=== PATIENT | female | born 1990 | race Caucasian/White ===

== ENCOUNTER 2019-07-03 10:42 | Emergency (ER) | payer OTHER ==
[2019-07-03 11:17] VITALS: BP 116/90
[2019-07-03] MEDS ORDERED: Tetan/Diph/Pertus SYR(Tdap)* 0.5 ML SYR(BOOSTRIX) use SYR IM ONE (11:28)
--- NOTE | 2019-07-03 11:34 | UC ---
Epistaxis Nasal HPI - HPI Summary HPI Summary: 28-year-old female who was putting branches into a mill when these tick she was using bounced back and hit her in the nose. Diameter of the stick is approximately 4-5 inches. No loss of consciousness however she did have an immediate nosebleed. - History of Current Complaint Chief Complaint: UCGeneralIllness Stated Complaint: NOSE INJ Time Seen by Provider: 07/03/19 11:21 Hx Obtained From: Patient Hx Last Menstrual Period: IUD ?: No Onset/Duration: Sudden Onset Severity Initially: Moderate Severity Currently: Mild Pain Intensity: 4 Aggravating Factor(s): Nasal Trauma Alleviating Factor(s): Pressure Associated Signs And Symptoms: Positive: Bruising - Swelling over the bridge of the nose. - Allergies/Home Medications Allergies/Adverse Reactions: Allergies Allergy/AdvReac Type Severity Reaction Status Date / Time No Known Allergies Allergy Verified 07/03/19 11:13 Home Medications: Home Medications Levonorgestrel (Iud) [Mirena IUD] 1 implant ONCE 07/03/19 [History Confirmed ] Levothyroxine TAB* [Synthroid 25 MCG TAB*] 1 tab QAM 07/03/19 [History Confirmed 07/03/19] Sertraline* [Zoloft*] 50 mg PO QAM 07/03/19 [History Confirmed 07/03/19] PMH/Surg Hx/FS Hx/Imm Hx Previously Healthy: Yes - Surgical History Surgical History: None - Family History Known Family History: Positive: Non-Contributory - Social History Occupation: Employed Full-time Lives: With Family Alcohol Use: Occasionally Substance Use Type: None Smoking Status (MU): Never Smoked Tobacco Review of Systems All Other Systems Reviewed And Are Negative: Yes Skin: Positive: Bruising - Bruising and swelling over bridge of nose. ENT: Positive: Epistaxis - Patient had immediate nosebleed however that has resolved. Is Patient Immunocompromised?: No Physical Exam Triage Information Reviewed: Yes Appearance: Well-Appearing, No Pain Distress, Well-Nourished Vital Signs: Initial Vital Signs Temp 98.4 F 07/03/19 11:14 Pulse 95 07/03/19 11:14 Resp 18 07/03/19 11:14 BP 116/90 07/03/19 11:14 Pulse Ox 100 09/24/19 11:14 Vital Signs Reviewed: Yes Eyes: Positive: Conjunctiva Clear - PERRLA, EOMI ENT: Positive: Hearing grossly normal, Pharynx normal, TMs normal, Uvula midline , Other - No septal hematoma. No current epistaxis. Dental: Positive: Other: - Teeth are not involved. Neck: Positive: Supple, Nontender - C-spine nontender, No Lymphadenopathy Respiratory: Positive: Chest non-tender, Lungs clear, Normal breath sounds, No respiratory distress, No accessory muscle use Cardiovascular: Positive: RRR, No Murmur, Pulses Normal, Brisk Capillary Refill Musculoskeletal: Positive: Strength Intact, ROM Intact, No Edema - Mild bruising and swelling over the bridge of the nose. Tender on palpation. Orbits are nontender. No orbital step-off. Neurological: Positive: Alert, Muscle Tone Normal - Cranial nerves II through XII are intact. Good arm and leg strength against resistance. Psychological Exam: Normal Skin: Positive: Other - See above notes. Epistaxis Nasal Course/Dx - Course Course Of Treatment: Nasal bones x-ray:FINDINGS: BONE DENSITY: Normal. BONES: There is a minimally displaced transverse fracture through the distal nasal bones bilaterally. The orbital rims are intact. JOINTS: There is no arthropathy. ALIGNMENT: There is no dislocation. SOFT TISSUES: Unremarkable. OTHER FINDINGS: There is mucosal thickening of the maxillary sinuses bilaterally. IMPRESSION: MINIMALLY DISPLACED FRACTURE OF THE DISTAL NASAL BONES BILATERALLY. Patient was given a referral to an ear nose and throat physician to call today and make an appointment for evaluation. Patient stated she does have a primary care provider, Dr. Stallworth. Head injury precautions were also given to the patient and with friend who is with her. - Differential Dx/Diagnosis Provider Diagnosis: Nasal fracture Discharge ED - Sign-Out/Discharge Documenting (check all that apply): Patient Departure All imaging exams completed and their final reports reviewed: Yes - Discharge Plan Condition: Fair Disposition: HOME Patient Education Materials: Nasal Fracture (ED), Head Injury (ED) Referrals: [facility] [Outside] No Primary Care Phys,NOPCP [Primary Care Provider] - Josiah Joyce MD [Medical Doctor] - Additional Instructions: Intermittent ice to her nose throughout the next day or 2. Tylenol every 4 hours as needed for pain. Follow-up with an ear nose and throat physician. Go to the emergency room if you have any change in her normal mental status, started vomiting, develop a severe headache, or any other concerns. - Billing Disposition and Condition Condition: FAIR Disposition: Home
== END 2019-07-03 11:53 | disposition home or self-care (01) ==
LOC: MERGE 10:42 → UCCORT 10:42
DX: S02.2XXA Fracture of nasal bones, initial encounter for closed fracture (principal); W22.8XXA Striking against or struck by other objects, initial encounter; Y93.89 Activity, other specified; Y92.9 Unspecified place or not applicable; Z23 Encounter for immunization
CPT/HCPCS: 70160; 90471; 90715; 99201; G0463